=== PATIENT | female | born 1955 | race African-American/Black ===

== ENCOUNTER 2016-07-15 16:24 | Inpatient (IN) ==
[2016-07-15] MEDS ORDERED: TYLENOL PO PRN (18:27)
[2016-07-15] MEDS ORDERED: ZOFRAN IV PRN (18:27)
[2016-07-15] MEDS ORDERED: SOLU-MEDROL IV ONE (18:27)
[2016-07-15] MEDS: NS 1,000 ML IV SCH (20:09)
[2016-07-15] MEDS: ROCEPHIN 1 GM/NS 50 ML IV SCH (20:09)
[2016-07-15] MEDS: AMBIEN PO SCH (20:10)
[2016-07-15] MEDS: LOVENOX SUBQ SCH (20:10)
[2016-07-15] MEDS: DEPAKOTE PO SCH (20:10)
[2016-07-15] MEDS: DUONEB (A & A) INH SCH ×2 (20:15→22:33)
[2016-07-15] MEDS: ADVAIR 500/50 DISKUS INH SCH (20:15)
[2016-07-15] MEDS: HUMALOG MIX 75/25 SUBQ SCH (20:30)
[2016-07-15] MEDS: ZITHROMAX 500 MG/NS 250 ML IV SCH (20:31)
[2016-07-15] MEDS: HUMULIN R SUBQ SCH (20:37)
[2016-07-15] MEDS: XANAX PO SCH (20:38)
[2016-07-16] MEDS: SOLU-MEDROL IV SCH ×4 (02:55→20:02)
[2016-07-16] MEDS: DUONEB (A & A) INH SCH ×6 (03:52→23:06)
[2016-07-16 05:30] LABS: ALLEN TEST YES; BE -3.7 mmoll (-3.0-3.0); BLOOD TYPE ARTERIAL; DRAW SITE R RADIAL; METHB 0.5 % (0.0-1.5); O2(CT) 18.4 mL/dL (15.0-23.0); PCO2(98.6) 42 mmHg (35-45); PO2(98.6) 68 mmHg (60-100); SAMPLE BLOOD; SAO2 97.4 % (95.0-100.0); THB 14.2 g/dL (11.5-17.4); pH(98.6) 7.33 (7.35-7.45)
[2016-07-16 05:31] LABS: MODALITY ROOM AIR
[2016-07-16 07:16] LABS: MANUAL DIFF NEEDED? NO
[2016-07-16] MEDS: HUMULIN R SUBQ SCH ×4 (07:26→21:46)
[2016-07-16 07:28] LABS: BASO% 0.1 % (0.0-0.8); HEMOGLOBIN 13.8 g/dL (12.0-16.0); IMM GRAN# 0.03 X1000 (0.0-0.04); IMM GRAN% 0.3 % (0.0-0.5); LYMPH# 1.64 X1000 (1.2-3.4); LYMPH% 15.6 % (20.5-51.1); MCH 27.7 PG (27-31); MCHC 34.5 g/dL (33-37); MCV 80.3 FL (81-99); MONO# 0.05 X1000 (0.11-0.59); MONO% 0.5 % (1.7-9.3); MPV 10.3 FL (7.4-10.4); NEUT% 83.5 % (42.2-75.2); PLT 355 X1000 (130-400); RBC 4.98 XMIL (4.2-5.4)
[2016-07-16] MEDS: ADVAIR 500/50 DISKUS INH SCH ×2 (07:35→19:43)
[2016-07-16 07:50] LABS: AGAP 16; BUN 20 mg/dL (8-22); CALCIUM 9.3 mg/dL (8.8-10.2); CHLORIDE 97 mmol/L (98-107); COSMO 295; POTASSIUM 4.8 mmol/L (3.5-5.1); SODIUM 136 mmol/L (136-145); TCO2 23 mmol/L (25-35)
--- NOTE | 2016-07-16 07:58 | Diag Imaging Result Document ---
PROCEDURE NAME: CHEST-2 VIEWS - 07/15/2016 2 VIEWS OF THE CHEST: FINDINGS: The inspiration is better than on 04/24/2016. Otherwise, there has been no significant change in the appearance of the chest. IMPRESSION: Stable chest.
[2016-07-16] MEDS: XANAX PO SCH ×4 (08:02→21:46)
[2016-07-16] MEDS: ZOLOFT PO SCH (08:03)
[2016-07-16] MEDS: HYZAAR 50/12.5 MG PO SCH (08:03)
[2016-07-16] MEDS: DEPAKOTE PO SCH ×2 (08:03→21:46)
[2016-07-16] MEDS: HUMALOG MIX 75/25 SUBQ SCH ×2 (08:04→17:01)
--- NOTE | 2016-07-16 09:34 | PROGRESS NOTE ---
DATE: 07/16/2016 SUBJECTIVE: Ms. Vidal was admitted to [facility] with an acute chronic obstructive pulmonary disease exacerbation complicated by tracheobronchitis. Clinically, she is breathing more comfortably this morning. She continues with dyspnea, persistent nonproductive cough and pleuritic chest discomfort. Her initial chest x-ray demonstrated no infiltrates or interstitial edema. She is maintaining O2 saturations of 94% on 2 L of O2. Her blood pressure is well controlled. Systolic blood pressures are ranging from 126-134, whereas her diastolic blood pressures are ranging from 70-75. She has a history of type 2 insulin-dependent diabetes mellitus. Her blood sugars are fluctuating. She has polyuria and polydipsia. OBJECTIVE: Vital Signs: She is afebrile. Pulse 82, respirations 16, blood pressure 122/74. Cardiovascular: Regular rate and rhythm. Lungs: Diffuse end-expiratory wheezing with forced expiration. I do hear improved aeration of the lungs. Abdomen: Soft, nontender, with active bowel sounds. ASSESSMENT AND PLAN: 1. Acute chronic obstructive pulmonary disease exacerbation with tracheobronchitis. We will continue supplemental O2, DuoNeb nebulizer treatments, IV Solu-Medrol and broad-spectrum antibiotics including Rocephin and Zithromax. I will recheck a PA and lateral chest x-ray in the morning. 2. Hypertension. Her blood pressure is well controlled. We will continue losartan HCT 50/12.5 mg daily. 3. Type 2 insulin-dependent diabetes mellitus. Her blood sugars are fluctuating, which I suspect is a reflection of the intravenous steroids. I will increase the Humalog 75-25 to 20 units subcutaneously b.i.d. with meals and continue Humulin R sliding scale and patterned sugars.
[2016-07-16] MEDS: NS 1,000 ML IV SCH (11:21)
[2016-07-16] MEDS ORDERED: INSULIN PEN NEEDLES ONE (12:17)
[2016-07-16] MEDS: LOVENOX SUBQ SCH ×2 (17:00→17:34)
[2016-07-16] MEDS: ROCEPHIN 1 GM/NS 50 ML IV SCH ×2 (17:02→17:35)
[2016-07-16] MEDS: ZITHROMAX 500 MG/NS 250 ML IV SCH (20:02)
[2016-07-16] MEDS: AMBIEN PO SCH (21:46)
[2016-07-17] MEDS: SOLU-MEDROL IV SCH ×4 (01:15→18:04)
[2016-07-17] MEDS: DUONEB (A & A) INH SCH ×5 (04:33→23:09)
[2016-07-17] MEDS: HUMULIN R SUBQ SCH ×4 (06:28→20:49)
[2016-07-17] MEDS: NS 1,000 ML IV SCH ×2 (07:56→10:25)
[2016-07-17] MEDS: DEPAKOTE PO SCH ×2 (08:14→20:44)
[2016-07-17] MEDS: XANAX PO SCH ×4 (08:14→20:44)
[2016-07-17] MEDS: ZOLOFT PO SCH (08:14)
[2016-07-17] MEDS: HYZAAR 50/12.5 MG PO SCH (08:14)
[2016-07-17] MEDS: HUMALOG MIX 75/25 SUBQ SCH ×2 (08:15→16:45)
[2016-07-17] MEDS ORDERED: LASIX IV ONE (08:53)
--- NOTE | 2016-07-17 09:19 | PROGRESS NOTE ---
DATE: 07/17/2016 SUBJECTIVE: Ms. Viadl was admitted to [facility] with an acute chronic obstructive pulmonary disease exacerbation complicated by tracheobronchitis. Clinically, she continues to make slow, but steady progress. She is breathing more comfortably and has less shortness of breath when walking to the bathroom. She is maintaining O2 saturations of 97% to 98% on 2 L of O2. Her cough is now largely nonproductive and is beginning to taper off. Her blood pressure is well controlled. Blood pressure this morning was 120/69. Her blood sugars continue to fluctuate. OBJECTIVE: Vital Signs: Temperature 98.0 degrees, pulse 72, respirations 17, BP 120/69. CV: Regular rate and rhythm. Lungs: Improved aeration throughout all lung wheat. There are some scattered end expiratory wheezing with forced expiration. Abdomen: Soft, nontender, with active bowel sounds. ASSESSMENT AND PLAN: 1. Acute chronic obstructive pulmonary disease exacerbation. We will continue supplemental oxygen, taper down on the Solu-Medrol to 40 mg intravenous every 6 hours, and continue DuoNeb nebulizer treatments, as well as Rocephin and Zithromax. I will check posterior/anterior and lateral chest x-ray today. 2. Hypertension. Her blood pressure is stable. We will continue her current regimen of medications. 3. Type 2 insulin-dependent diabetes mellitus. Her blood sugars were fluctuating because of the intravenous Solu-Medrol. I will increase the Humalog 75/25 to 25 units subcutaneously twice daily, and continue pattern sugars and a Humulin R sliding scale.
--- NOTE | 2016-07-17 12:57 | Diag Imaging Result Document ---
PROCEDURE NAME: CHEST-2 VIEWS - 07/17/2016 PA AND LATERAL RADIOGRAPHS OF THE CHEST: COMPARISON: 07/15/2016. FINDINGS: The lungs are grossly clear. There is no discrete pleural fluid collection or evidence of pneumothorax. The cardiomediastinal silhouette and upper airway are grossly unremarkable. IMPRESSION: No evidence of acute chest pathology.
[2016-07-17] MEDS: ADVAIR 500/50 DISKUS INH SCH ×2 (14:06→20:00)
[2016-07-17] MEDS: ZITHROMAX 500 MG/NS 250 ML IV SCH (18:04)
[2016-07-17] MEDS: LOVENOX SUBQ SCH (18:04)
[2016-07-17] MEDS: ROCEPHIN 1 GM/NS 50 ML IV SCH (18:04)
[2016-07-17] MEDS: AMBIEN PO SCH (20:44)
[2016-07-18] MEDS: SOLU-MEDROL IV SCH ×3 (00:23→18:09)
[2016-07-18] MEDS: DUONEB (A & A) INH SCH ×5 (04:33→23:10)
[2016-07-18] MEDS: HUMULIN R SUBQ SCH ×4 (07:07→22:02)
[2016-07-18] MEDS: NS 1,000 ML IV SCH ×3 (07:11→18:09)
[2016-07-18] MEDS: ZOLOFT PO SCH (09:15)
[2016-07-18] MEDS: HYZAAR 50/12.5 MG PO SCH (09:15)
[2016-07-18] MEDS: DEPAKOTE PO SCH ×2 (09:15→21:00)
[2016-07-18] MEDS: HUMALOG MIX 75/25 SUBQ SCH ×2 (09:15→16:35)
[2016-07-18] MEDS: XANAX PO SCH ×3 (09:15→21:00)
[2016-07-18] MEDS: ADVAIR 500/50 DISKUS INH SCH ×2 (10:00→19:55)
--- NOTE | 2016-07-18 11:32 | PROGRESS NOTE ---
DATE: 07/18/2016 SUBJECTIVE: Ms. Vidal was admitted to [facility] with an acute chronic obstructive pulmonary disease exacerbation complicated by tracheobronchitis. Clinically, she continues to improve. Chest x-ray from 07/17/2016 demonstrated no pleural fluid, pneumothorax, or infiltrates. The lungs were grossly clear. Her lungs sound much more clear. She is maintaining O2 saturations of 98-99% on 2 L of O2. She has a minimal cough. Blood sugars continue to fluctuate. PHYSICAL EXAMINATION: Vital Signs: Temperature 98.1 degrees, pulse 82, respirations 20, BP 147/77. CV: Regular rate and rhythm. Lungs: Clear. Abdomen: Soft, nontender, with active bowel sounds. ASSESSMENT AND PLAN: 1. Acute chronic obstructive pulmonary disease exacerbation. I will check a room air oxygen saturation and stop the supplemental oxygen if her oxygen level is greater than 90. We will reduce the Solu-Medrol to 40 mg intravenous every 12 hours and continue DuoNeb nebulizer treatments. I will stop the intravenous antibiotics and begin Levaquin 750 mg daily. 2. Hypertension. Her blood pressure is stable. We will continue her current regimen of medications. 3. Type 2 insulin-dependent diabetes mellitus. Her blood sugars are still fluctuating. We will continue Humalog 75/25 with 25 units subcutaneous twice a day, pattern sugars and a Humulin R sliding scale. As we are tapering her steroids, I do not want to increase the Humalog at this time.
[2016-07-18] MEDS: LOVENOX SUBQ SCH (18:09)
[2016-07-18] MEDS: AMBIEN PO SCH (21:00)
[2016-07-19] MEDS: NS 1,000 ML IV SCH (01:46)
[2016-07-19] MEDS: SOLU-MEDROL IV SCH (06:33)
[2016-07-19] MEDS: HUMULIN R SUBQ SCH (06:34)
[2016-07-19 07:21] VITALS: BP 147/86
[2016-07-19] MEDS: DUONEB (A & A) INH SCH (07:25)
[2016-07-19] MEDS: ADVAIR 500/50 DISKUS INH SCH (07:25)
[2016-07-19] MEDS: HUMALOG MIX 75/25 SUBQ SCH (08:58)
[2016-07-19] MEDS: XANAX PO SCH (08:58)
[2016-07-19] MEDS: ZOLOFT PO SCH (08:58)
[2016-07-19] MEDS: DEPAKOTE PO SCH (08:59)
[2016-07-19] MEDS: HYZAAR 50/12.5 MG PO SCH (08:59)
[2016-07-19] MEDS ORDERED: LEVAQUIN PO SCH (09:00)
== END 2016-07-19 09:35 | disposition home or self-care (01) | DRG 192 ==
LOC: DIRADM 16:24 → 3N 16:25
PROVIDERS: ADMIT Internal Medicine; ATTEND Internal Medicine
DX: J44.1 Chronic obstructive pulmonary disease with (acute) exacerbation (principal); E11.42 Type 2 diabetes mellitus with diabetic polyneuropathy; Z99.81 Dependence on supplemental oxygen; I10 Essential (primary) hypertension; E78.5 Hyperlipidemia, unspecified; F17.210 Nicotine dependence, cigarettes, uncomplicated; Z79.899 Other long term (current) drug therapy; Z79.4 Long term (current) use of insulin; Z82.49 Family history of ischemic heart disease and other diseases of the circulatory system; Z83.3 Family history of diabetes mellitus
CPT/HCPCS: 71020; 80048; 82805; 82948; 85025; 87040; 94640; 94761; J0456; J0696; J1650; J1815; J1940; J2920; J2930; J7030

== ENCOUNTER 2016-10-05 16:21 | Inpatient (IN) ==
[2016-10-05] MEDS ORDERED: VALIUM ONE (16:41)
[2016-10-05] MEDS ORDERED: ZOFRAN IV PRN (17:24)
[2016-10-05] MEDS ORDERED: CEREBYX IV ONE (17:24)
[2016-10-05] MEDS ORDERED: NS IV ONE (17:24)
[2016-10-05] MEDS ORDERED: VALIUM IV PRN (17:24)
[2016-10-05 17:31] LABS: MANUAL DIFF NEEDED? NO
[2016-10-05 17:34] LABS: BASO% 0.4 % (0.0-0.8); EOS# 0.04 X1000 (0.0-0.7); EOS% 0.2 % (0.0-10.0); HEMATOCRIT 40.8 % (37.0-47.0); HEMOGLOBIN 13.3 g/dL (12.0-16.0); IMM GRAN# 0.17 X1000 (0.0-0.04); IMM GRAN% 0.9 % (0.0-0.5); LYMPH# 5.77 X1000 (1.2-3.4); LYMPH% 30.7 % (20.5-51.1); MCH 27.7 PG (27-31); MCHC 32.6 g/dL (33-37); MCV 84.8 FL (81-99); MONO# 0.65 X1000 (0.11-0.59); MONO% 3.5 % (1.7-9.3); MPV 10.3 FL (7.4-10.4); NEUT% 64.3 % (42.2-75.2); PLT 511 X1000 (130-400); RBC 4.81 XMIL (4.2-5.4)
[2016-10-05 17:41] LABS: INR 1.02; PROTIME 10.7 Seconds (9.2-11.7); PTT 28.5 Seconds (22.0-36.0)
[2016-10-05 17:49] LABS: MAGNESIUM 1.7 mg/dL (1.5-2.7)
[2016-10-05 17:58] LABS: FREE T4 0.84 ng/dL (0.93-1.70)
[2016-10-05 18:23] LABS: ALLEN TEST NO; BE -5.8 mmoll (-3.0-3.0); BLOOD TYPE ARTERIAL; DRAW SITE R BRACHIAL; METHB 1.7 % (0.0-1.5); O2(CT) 15.6 mL/dL (15.0-23.0); PCO2(98.6) 37 mmHg (35-45); SAMPLE BLOOD; SAO2 87.8 % (95.0-100.0); THB 13.2 g/dL (11.5-17.4); pH(98.6) 7.33 (7.35-7.45)
[2016-10-05 18:24] LABS: MODALITY ROOM AIR
[2016-10-05 18:25] LABS: PO2(98.6) 49 mmHg (60-100)
[2016-10-05] MEDS: DILANTIN IV SCH (18:34)
[2016-10-05] MEDS: NS 1,000 ML IV SCH (18:35)
[2016-10-05] MEDS: DUONEB (A & A) INH SCH ×2 (19:40→23:51)
[2016-10-05] MEDS: ZOSYN 4.5 GM/NS 100 ML IV SCH ×2 (20:08→23:42)
[2016-10-05 21:12] LABS: ALBUMIN 3.8 g/dL (3.5-5.0); CALCIUM 8.6 mg/dL (8.8-10.2); POTASSIUM 4.5 mmol/L (3.5-5.1); TOTAL BILIRUBIN 0.19 mg/dL (0.20-1.00); TOTAL PROTEIN 7.3 g/dL (6.3-8.3)
--- NOTE | 2016-10-05 21:21 | HISTORY AND PHYSICAL ---
HISTORY OF PRESENT ILLNESS: Mrs. Heidi Vidal is a 61-year-old lady who is well known to me. She has a history of COPD, type 2 insulin-dependent diabetes mellitus complicated by polyneuropathy, bipolar disorder. I had seen her in the office yesterday. She had new onset binocular diplopia. We obtained an MRI of the brain which was grossly normal. Her daughter called me stating that her mother was actively seizing. She apparently had a grand mal seizure. EMT personnel witnessed a 2nd seizure at the home and gave her Valium. Her blood sugar was 251. On arrival to the ER she had another witnessed grand mal seizure. As stated earlier, she does have a longstanding history of COPD. She was with complaint of increasing shortness of breath, increased work of breathing and a nonproductive cough. She was noted to have frothy gastric secretions around her mouth. She had a leukocytosis of 18,000. Her arterial blood gases were abnormal. We were concerned that she had aspirated. PAST MEDICAL HISTORY: As above. PAST SURGICAL HISTORY: Tubal ligation. ALLERGIES: Aspirin, Januvia Keflex. MEDICATIONS: Advair 500/50 one puff b.i.d., aspirin 81 mg daily, Depakote 250 mg daily, losartan/hydrochlorothiazide 100/25 one p.o. daily, ProAir 2 puffs q.6 hours p.r.n. shortness of breath, Xanax 0.5 mg 1 q.8 hours p.r.n., Zoloft 100 mg daily. FAMILY HISTORY: Her father had hypertension, coronary artery disease status post UT and at the age of 69. Her mother at the age of 61. She had complications from peritonitis. Her sister has diabetes and hypertension. SOCIAL HISTORY: She has quit. She does consume alcoholic beverages. She lives with her spouse. REVIEW OF SYSTEMS: She denies any recent weight gain or weight loss.HEENT: She wears glasses. CV: She was noted to be in atrial fibrillation with rapid ventricular rate. Pulmonary: See HPI. GI: See HPI. Endocrine: No polyuria, no polydipsia. Skin: No easy bruisability. : No leakage of urine with coughing or laughing. Skin: No easy bruisability. Neurologic: No migraines or seizures. Psychiatric: History of depression. PHYSICAL EXAMINATION: GENERAL: This is a acutely ill-appearing 61-year-old lady in mild distress secondary to dyspnea. VITAL SIGNS: Temperature 98.6 degrees, pulse 144 and irregular, respiratory rate 23, BP 133/85. HEENT: Fundi with arteriolar wall thickening. Pupils equal, round, reactive to light. Extraocular eye movements intact. TMs without bullae. NECK: Supple. No masses, JVD or bruits. CV: Irregularly irregular. LUNGS: Scattered rhonchi throughout all lung wheat with some end expiratory wheezing. ABDOMEN: Soft, nontender, with active bowel sounds. EXTREMITIES: Without edema. SKIN: No palpable purpura. NEURO: She is postictal. ASSESSMENT AND PLAN: 1. New onset seizure disorder. I am going to load her with Cerebyx 800 mg IV load then begin Dilantin 100 mg IV q.8 hours. 2. Acute respiratory failure secondary to aspiration pneumonitis. We will treat her with supplemental O2, DuoNeb nebulizer treatments and broad-spectrum antibiotics including Zosyn. 3. Type 2 insulin-dependent diabetes mellitus. While she is n.p.o. we will place her on pattern sugars and a Humulin R sliding scale. Once she is fully awake and eating we will resume her regular home dosage of Novolin 70/30. 4. Given the patient's clinical presentation and comorbid conditions, I believe that it is absolutely necessary to admit the patient to the hospital. Attempting to treat her as an outpatient could potentially have life-threatening consequences. I anticipate that she will be in the hospital for at least 2 midnights and I will therefore place her in inpatient status. We will begin Lovenox 40 mg subcutaneously daily as DVT prophylaxis.
[2016-10-05] MEDS: DEPAKOTE PO SCH (21:48)
[2016-10-06] MEDS: DILANTIN IV SCH ×3 (02:39→17:00)
[2016-10-06] MEDS: DUONEB (A & A) INH SCH ×5 (03:02→21:07)
[2016-10-06] MEDS ORDERED: PERCOCET-10 PO PRN (03:55)
[2016-10-06] MEDS: ZOSYN 4.5 GM/NS 100 ML IV SCH ×4 (05:20→17:28)
--- NOTE | 2016-10-06 05:40 | EKG Report ---
Test Performed on : 10/05/2016 5:33:08 PM Test Reason : ATRIAL FIB Blood Pressure : / mmHG Vent. Rate : 131 BPM Atrial Rate : 131 BPM P-R Int : 144 ms QRS Dur : 068 ms QT Int : 316 ms P-R-T Axes : 052 032 073 degrees QTc Int : 466 ms Sinus tachycardia. Cannot rule out Anterior infarct , age undetermined Abnormal ECG When compared with ECG of 22-APR-2016 07:20, Vent. rate has increased BY 68 BPM Unconfirmed Result
--- NOTE | 2016-10-06 07:45 | Diag Imaging Result Document ---
PROCEDURE NAME: CHEST-PORTABLE - 10/05/2016 AP PORTABLE CHEST AT 1750 HOURS: FINDINGS: Inspiration is suboptimal. Considering the degree of inspiration, there has been no significant change since 07/17/2016. IMPRESSION: Poor inspiration.
[2016-10-06] MEDS ORDERED: GLUCOPHAGE PO SCH (08:00)
--- NOTE | 2016-10-06 08:19 | PROGRESS NOTE ---
DATE: 10/06/2016 SUBJECTIVE: Ms. Vidal was admitted to [facility] with new onset generalized tonic clonic seizures. She had 2 witnessed seizures at home. She had a witnessed seizure in the ER. We loaded her with Cerebyx, and she is now taking Dilantin 100 mg IV every 8 hours. She has had no further seizure activity. An MRI of the brain was grossly normal. She is with complaint of a nonproductive cough, pleuritic chest pain that is worse with deep inspiration and paroxysms of cough, and mild dyspnea. She is maintaining O2 saturations of 99% to 100% on 4 liters of O2 per nasal cannula. She does have a history of type 2 insulin dependent diabetes mellitus. She ate very well last night. Her sugars are fluctuating and ranging in the 200s. She has polyuria and polydipsia. OBJECTIVE: Vital Signs: Temperature 98.1 degrees, pulse 70, respirations 16, blood pressure 131/64. Cardiovascular: Regular rate and rhythm. Lungs: Scattered rhonchi with occasional end- expiratory wheezing with forced expiration. Abdomen: Soft, nontender, with active bowel sounds. ASSESSMENT AND PLAN: 1. New onset generalized tonic clonic seizures. I cannot identify any readily identifiable cause for the seizures. We will continue Dilantin 100 mg IV every 8 hours. I will probably transition her to [facility] as an outpatient. We will consult Dr. Navarro for further evaluation. The patient understands that under State Law that she cannot drive for 6 months after a seizure, and she most remain seizure free during that period of time. 2. Acute chronic obstructive pulmonary disease exacerbation with aspiration pneumonitis. We will continue supplemental O2, DuoNeb nebulizer treatments, and broad-spectrum antibiotics including Zosyn. I will recheck a PA and lateral chest x-ray today. 3. Type 2 insulin dependent diabetes mellitus. We will continue an 1800 calorie ADA diet, pattern sugars, Humulin R sliding scale, and I will resume her regular dosage of NovoLog 70/30 at 25 units subcutaneously twice a day.
[2016-10-06] MEDS ORDERED: CYMBALTA PO SCH (09:00)
[2016-10-06] MEDS: NOVOLOG MIX 70/30 SUBQ SCH ×2 (09:14→16:56)
[2016-10-06] MEDS: HYZAAR 50/12.5 MG PO SCH (09:15)
[2016-10-06] MEDS: CARDIZEM 100 MG/NS 100 ML IV SCH (09:15)
[2016-10-06] MEDS: DEPAKOTE PO SCH ×2 (09:15→21:01)
--- NOTE | 2016-10-06 09:15 | Diag Imaging Result Document ---
PROCEDURE NAME: CHEST-PORTABLE - 10/06/2016 AP PORTABLE CHEST AT 0840 HOURS: FINDINGS: The inspiration is suboptimal. Compared to 10/05/2016, there is somewhat improved atelectasis or pneumonia in the right lower lobe. IMPRESSION: Poor inspiration.
[2016-10-06] MEDS: XANAX PO SCH ×3 (09:16→16:56)
[2016-10-06] MEDS: ZOLOFT PO SCH (09:16)
[2016-10-06] MEDS: ADVAIR 500/50 DISKUS INH SCH ×2 (09:37→19:15)
[2016-10-06] MEDS: NS 1,000 ML IV SCH (11:35)
[2016-10-06] MEDS: HUMULIN R SUBQ SCH ×3 (12:12→21:01)
[2016-10-06] MEDS ORDERED: CEREBYX IV ONE (13:32)
[2016-10-06] MEDS ORDERED: CEREBYX 500 MG in NS 50 ML IV ONE (14:00)
--- NOTE | 2016-10-06 14:28 | CONSULTATION ---
DATE OF CONSULTATION: 10/06/2016 HISTORY OF PRESENT ILLNESS: Ms. Vidal is 61 years old and she has had some recent neurologic change, including diplopia and seizure. She is not attentive now and not able to provide definite valid detailed history. Attentive family at the bedside and review of Dr. Ramirez' notes shows that she had complained of diplopia and she had some findings consistent with 6th nerve palsy a few days ago. Workup included brain MRI with and without contrast done yesterday, reported to show typical chronic changes, empty sella, nothing focal or acute, specifically no mention of any brainstem lesion. Later in the day yesterday, after the MRI, she began having israel seizure activity. Daughter at the bedside was 1st-hand witness. She reports patient had right arm flexed rigidly, left arm extended, shaking all over, unresponsive. She had at least 3 of these seizures witnessed. She never seemed completely back to normal baseline mentally. She sometimes visits with family and sometimes seems unable to maintain attention. Family reports no history of previous head injury, no concussion, no brain trauma, no previous stroke, no previous seizure. Her home medicines include alprazolam and family does not know how she takes that. She also has low-dose divalproex as a home medicine. We do not have urine drug screen this admission. Laboratories showed WBC 18,000 and glucose 318. She has been afebrile. Systolic blood pressures were initially 130s, later 90s , later mostly 150s- 170s. Hospital chart shows she had presented to the emergency room 10/03/2016 complaining of blurred vision for 6 days. The chart also indicates she had been seen at an emergency room in [place] the day before for similar complaints. Past history is reported to include bipolar disorder, COPD, and diabetes mellitus with peripheral neuropathy. EXAMINATION: On examination, Ms. Vidal is initially asleep, easily waked, but not easy to keep alert. She was sometimes attentive and sometimes not attentive. I witnessed at least 1 episode of right arm flexed at the elbow, eyes turned to the left, unresponsiveness for a few seconds. When she is alert, she answered simple questions appropriately. Interictally, speech is not dysarthric. Language function seems intact. I could not test her memory thoroughly. She has full lateral eye movement horizontally with head turning and with voluntary gaze left and right. She does not report diplopia now. Facial motility is symmetric. She has good power in the limbs. She did well on [id number] testing bilaterally. I did not test her gait. Neck is supple. IMPRESSIONS: 1. Recent diplopia. 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 Negative MRI is reassuring. I do not see any clinical evidence now of brainstem lesion. The clinical history does not sound like myasthenia or ocular myopathy. 2. Recent onset seizure. By report, she has not been completely recovered since onset. I wonder about subclinical seizures and I think I witnessed a likely brief partial seizure today. EEG is to be done soon. She has low-dose divalproex, which might help prevent seizure, but is probably not an adequate dose for full control. Reason for seizure is not certain. Alprazolam withdrawal would be a consideration. I do not see anything in the metabolic profile that likely would be associated with seizure or encephalopathy. In her age group with her risk factors, acute stroke is the most likely explanation for new onset seizure. We might need to consider repeat brain imaging. I discussed my findings and impression with family at the bedside. Further plans will depend on the EEG and on her clinical course. She has received fosphenytoin load and now phenytoin 100 mg IV q.8 hours. I am going to add another single fosphenytoin dose empirically. Thanks for asking me to see Ms. Vidal. [facility]
[2016-10-06] MEDS: DILAUDID IV PRN ×2 (14:51→21:10)
[2016-10-07] MEDS: ZOSYN 4.5 GM/NS 100 ML IV SCH ×5 (00:55→17:53)
[2016-10-07] MEDS: NS 1,000 ML IV SCH ×3 (00:56→20:01)
[2016-10-07] MEDS: DILANTIN IV SCH (01:03)
[2016-10-07] MEDS: DUONEB (A & A) INH SCH ×4 (02:36→20:00)
[2016-10-07] MEDS: DILAUDID IV PRN ×3 (05:42→19:56)
[2016-10-07] MEDS: HUMULIN R SUBQ SCH ×4 (06:36→21:02)
--- NOTE | 2016-10-07 07:55 | PROGRESS NOTE ---
DATE: 10/07/2016 SUBJECTIVE: Ms. Vidal has had no further grand mal seizures. Her family reported that she has had several episodes in which she simply stiffened up and was in a trancelike state. She seems much more alert this morning. She is awake and easily arousable. She answers questions appropriately. She is oriented to name and place. Her blood sugars are trending down and are ranging from 132-185. She denies any polyuria or polydipsia. She is breathing more comfortably. She has less cough and pleuritic chest pain. She is maintaining O2 saturations of 97-100% on 4 L of O2. OBJECTIVE: Temperature 98.7 degrees, pulse 80, respirations 16, BP 119/59. CV: Regular rate and rhythm. Lungs: Diminished breath sounds in the right base. Abdomen: Soft and nontender with active bowel sounds. Extremities: Without edema. ASSESSMENT AND PLAN: 1. New onset seizures. It sounds as if she is having both grand mal as well as petit mal seizures. Her Dilantin level was 7.4 yesterday. I will switch her to oral Dilantin 300 mg daily. Because of the petit mal seizure activity, I will increase the Depakote to 500 mg twice a day. 2. Acute chronic obstructive pulmonary disease exacerbation with aspiration pneumonia. We will continue supplemental oxygen, DuoNeb nebulizer treatments, and intravenous Zosyn. I will recheck a PA and lateral chest x-ray in the morning. 3. Type 2 insulin-dependent diabetes mellitus. We will continue an 1800 calorie, [employer] [employer] diet, pattern sugars, Humulin R sliding scale, and her regular dosage of NovoLog 70/30 with 25 units subcutaneously twice a day.
[2016-10-07] MEDS ORDERED: INSULIN PEN NEEDLES ONE (08:23)
[2016-10-07] MEDS: ADVAIR 500/50 DISKUS INH SCH ×2 (08:27→20:00)
[2016-10-07] MEDS: NOVOLOG MIX 70/30 SUBQ SCH ×2 (08:29→16:28)
[2016-10-07] MEDS: DEPAKOTE PO SCH ×2 (08:30→19:59)
[2016-10-07] MEDS: XANAX PO SCH ×3 (08:30→16:28)
[2016-10-07] MEDS: HYZAAR 50/12.5 MG PO SCH (08:30)
[2016-10-07] MEDS: ZOLOFT PO SCH (08:30)
[2016-10-07] MEDS ORDERED: CEREBYX IV ONE (08:53)
[2016-10-07] MEDS ORDERED: CEREBYX 500 MG in NS 50 ML IV ONE (09:00)
[2016-10-07] MEDS ORDERED: DILANTIN PO SCH (09:00)
--- NOTE | 2016-10-07 09:15 | PROGRESS NOTE ---
DATE: 10/07/2016 Ms. Vidal is awake, alert, attentive, appropriate, following simple commands consistently, visiting with family at the bedside appropriately. During the time that I was at the bedside, she had a typical focal seizure with head turned to the right, eyes tonic to the right, right arm flexed at the elbow and rigid, left arm limp and motionless. She was unresponsive during this time. This lasted about 45 seconds and resolved. Within several seconds, she was alert, conversing, reporting no sense that she had had an episode. Family reports these episodes have been occurring as often as several per hour. IMPRESSION: Focal seizures, apparent left hemisphere focus, much more alert interictally. We have electroencephalogram planned. Phenytoin level was subtherapeutic yesterday and I will give her additional load today. I am optimistic that seizure can be controlled. In light of the clear focal features, and her age and risk factors, this still seems most consistent with recent infarction as focus for stroke. We may need to repeat her MRI scan later. Thanks for allowing me to follow Ms. Vidal. [facility]
[2016-10-07] MEDS ORDERED: NS IV SCH ×4 (10:00)
[2016-10-07] MEDS ORDERED: DILANTIN IV SCH ×4 (10:00)
--- NOTE | 2016-10-07 15:00 | EEG REPORT ---
DATE: 10/07/2016 STUDY: EEG #[id number]. COMMENT: This is a digitally recorded EEG on a 61-year-old patient with clinically apparent seizures, likely left hemisphere focus. FINDINGS: This recording contains several electrographic seizures lasting from several seconds up to 90 seconds. Interictally, there is low amplitude slowing across the hemispheres and some poorly sustained 6 Hz posterior rhythm with uncertain reactivity to eye opening. The seizures were composed of mostly generalized spike and wave, sharp and slow wave discharges. INTERPRETATION: Abnormal EEG because of generalized seizure. CORRELATION: This correlates with her clinical seizures. Although the clinical features are clearly focal, the EEG findings are generalized. [facility]
[2016-10-07] MEDS: CARDIZEM 100 MG/NS 100 ML IV SCH (16:53)
[2016-10-08] MEDS: ZOSYN 4.5 GM/NS 100 ML IV SCH ×5 (00:40→23:42)
[2016-10-08] MEDS: DUONEB (A & A) INH SCH ×4 (04:10→20:17)
[2016-10-08] MEDS: HUMULIN R SUBQ SCH ×4 (06:27→22:47)
[2016-10-08] MEDS: DILANTIN PO SCH ×2 (08:31→08:33)
[2016-10-08] MEDS: ZOLOFT PO SCH (08:31)
[2016-10-08] MEDS: XANAX PO SCH ×3 (08:31→16:36)
[2016-10-08] MEDS: NOVOLOG MIX 70/30 SUBQ SCH ×2 (08:32→16:37)
--- NOTE | 2016-10-08 08:32 | PROGRESS NOTE ---
DATE: 10/08/2016 SUBJECTIVE: Ms. Vidal was noted to have another petit mal seizure last night. Her EEG demonstrated several electrographic seizures lasting from several seconds up to 38 seconds. The seizures were composed of mostly generalized spike and slow-wave discharges. During her initial seizure she aspirated. She is continuing with a persistent cough productive of yellowish sputum and pleuritic chest pain, worse with deep inspiration and paroxysms of cough. She is maintaining O2 saturations of 100% on 3 L of O2. She has had several episodes of symptomatic hypoglycemia. Her family reports that she is not eating very much. OBJECTIVE: Vital signs: Temperature 98.9 degrees, pulse 80, respirations 16, BP 140/66. CV: Regular rate and rhythm. Lungs: Crackles in the right base. Abdomen: Soft, nontender, with active bowel sounds. ASSESSMENT AND PLAN: 1. Acute chronic obstructive pulmonary disease exacerbation with aspiration pneumonia. We will continue supplemental oxygen, DuoNeb nebulizer treatments, and intravenous Zosyn. I will check a portable chest x-ray today. 2. Petit mal seizures. She continues to have more absence-type seizures. I have spoken to Dr. Navarro. We will increase the Depakote to 100 mg twice daily and increase the Dilantin to 400 mg daily. I will recheck Depakote and Dilantin levels in the morning. 3. Type 2 insulin-dependent diabetes mellitus. Given the episodes of hypoglycemia, I am going to reduce the dosage of the NovoLog 70/30 to 15 units subcutaneous twice daily with meals, and will continue pattern sugars and a Humulin-R sliding scale.
[2016-10-08] MEDS: NS 1,000 ML IV SCH (08:34)
--- NOTE | 2016-10-08 09:21 | Diag Imaging Result Document ---
PROCEDURE NAME: CHEST-PORTABLE - 10/08/2016 AP PORTABLE CHEST AT 0805: FINDINGS: There is atelectasis in both lung bases which was not present on 10/06/2016. Otherwise, there has been no significant change. IMPRESSION: Bibasilar atelectasis.
[2016-10-08] MEDS: HYZAAR 50/12.5 MG PO SCH (09:37)
[2016-10-08] MEDS: DILAUDID IV PRN ×3 (09:37→21:26)
[2016-10-08] MEDS: DEPAKOTE PO SCH ×2 (10:00→20:17)
--- NOTE | 2016-10-08 10:08 | PROGRESS NOTE ---
DATE: 10/08/2016 SUBJECTIVE: Ms. Vidal is awake, alert, attentive. She seems even brighter today than yesterday. She has had some likely partial seizures in the last 12 hours, but the family has not noticed anything definite in the last few hours. This is significantly improved compared to yesterday. We discussed focal versus generalized seizures. We discussed possible explantations including statistically most likely acute ischemic infarction in her age group with her risk factors. I made it clear to family that these are not definite diagnoses. We have increased her divalproex and phenytoin doses and will be optimistic seizure control will be established. We may need to consider repeat brain imaging to look for possible left hemisphere infarction that may have occurred after the recent MRI. No urgent suggestion from a neurologic standpoint today. Thanks for allowing me to follow Ms. Vidal. [facility]
[2016-10-08] MEDS: ADVAIR 500/50 DISKUS INH SCH ×2 (11:11→20:17)
[2016-10-08] MEDS: CARDIZEM 100 MG/NS 100 ML IV SCH (12:56)
--- NOTE | 2016-10-08 14:42 | Diag Imaging Result Document ---
PROCEDURE NAME: MRI BRAIN W/O CONTRAST - 10/08/2016 MRI OF THE BRAIN: FINDINGS: The current study is compared with that of 10/05/2016. There is no evidence of restricted diffusion. There is some patient motion on the T2-weighted images. There are some punctate and patchy areas of increased T2-weighted signal intensity in the white matter of the centrum semiovale on the right and around the atrium of the left lateral ventricle. There is also some increased T2-weighted signal intensity in subcortical white matter just above the left sylvian fissure. There is no evidence of bleed or abnormal extra-axial fluid collection. IMPRESSION: 1. Stable MRI of the brain. 2. Chronic microvascular changes.
[2016-10-09] MEDS: NS 1,000 ML IV SCH ×3 (01:55→20:00)
[2016-10-09] MEDS: DUONEB (A & A) INH SCH ×4 (03:35→21:39)
[2016-10-09] MEDS: DILAUDID IV PRN ×3 (04:15→17:00)
[2016-10-09] MEDS: ZOSYN 4.5 GM/NS 100 ML IV SCH ×3 (05:30→17:00)
[2016-10-09] MEDS: HUMULIN R SUBQ SCH ×4 (06:00→19:45)
[2016-10-09] MEDS: NOVOLOG MIX 70/30 SUBQ SCH ×2 (08:20→16:30)
[2016-10-09] MEDS: ZOLOFT PO SCH (08:20)
[2016-10-09] MEDS: XANAX PO SCH ×3 (08:20→17:00)
[2016-10-09] MEDS: HYZAAR 50/12.5 MG PO SCH (08:20)
[2016-10-09] MEDS: DILANTIN PO SCH (08:20)
[2016-10-09] MEDS: DEPAKOTE PO SCH ×2 (08:20→19:45)
[2016-10-09] MEDS: ADVAIR 500/50 DISKUS INH SCH ×2 (11:25→21:40)
[2016-10-09] MEDS: CARDIZEM 100 MG/NS 100 ML IV SCH (17:17)
[2016-10-10] MEDS: DILAUDID IV PRN ×2 (00:11→06:10)
[2016-10-10] MEDS: ZOSYN 4.5 GM/NS 100 ML IV SCH ×5 (00:12→23:27)
[2016-10-10] MEDS: CARDIZEM 100 MG/NS 100 ML IV SCH (05:01)
[2016-10-10] MEDS: DUONEB (A & A) INH SCH ×3 (06:01→15:54)
[2016-10-10] MEDS: HUMULIN R SUBQ SCH ×4 (06:22→20:59)
[2016-10-10] MEDS: NOVOLOG MIX 70/30 SUBQ SCH ×2 (08:41→16:55)
[2016-10-10] MEDS: DILANTIN PO SCH (08:41)
[2016-10-10] MEDS: ZOLOFT PO SCH (08:41)
[2016-10-10] MEDS: XANAX PO SCH ×3 (08:42→17:55)
[2016-10-10] MEDS: HYZAAR 50/12.5 MG PO SCH (08:42)
[2016-10-10] MEDS: DEPAKOTE PO SCH ×2 (08:42→20:58)
[2016-10-10] MEDS ORDERED: PERCOCET-10 PO PRN (10:31)
[2016-10-10] MEDS: ADVAIR 500/50 DISKUS INH SCH ×2 (11:33→19:15)
--- NOTE | 2016-10-10 12:13 | PROGRESS NOTE ---
DATE: 10/10/2016 SUBJECTIVE: Mrs. Vidal has a history of type 2 insulin-dependent diabetes mellitus. She had been having frequent episodes of hypoglycemia and we reduced the dosage of insulin to 15 units subcutaneously b.i.d. Her sugars are now trending upward. Sugars are ranging from 149-191. She has had no further seizure activity. She is breathing comfortably and is maintaining O2 saturations of 96 to 98% on room air. We had been treating her for an underlying aspiration pneumonia with Zosyn. She continues with a minimal cough but denies any pleuritic chest pain. OBJECTIVE: Vital signs: Temperature 98.8 degrees, pulse 80, respirations 16, BP 160/71. CV: Regular rate and rhythm. Lungs: Clear. Abdomen: Soft, nontender, with active bowel sounds. ASSESSMENT AND PLAN: 1. Acute chronic obstructive pulmonary disease exacerbation with aspiration pneumonia. Clinically she has continued to improve. We will continue DuoNeb nebulizer treatments as well as Zosyn. I will recheck a PA and lateral chest x-ray in the morning. 2. Seizure disorder. She has had both grand mal and fuller mal seizures. We will continue both Depakote and Dilantin. 3. Type 2 insulin-dependent diabetes mellitus. Her blood sugars are trending upward. I will increase the NovoLog 70/30 to 20 units subcutaneously b.i.d. cc: Antonio Ramirez MD
--- NOTE | 2016-10-10 13:01 | Diag Imaging Result Document ---
PROCEDURE NAME: CHEST-PORTABLE - 10/10/2016 PORTABLE CHEST: FINDINGS: Compared to 10/08/2016. Heart size is within normal limits. The lungs appear clear. There is no pleural effusion or pneumothorax identified. IMPRESSION: No evidence of acute disease.
[2016-10-10] MEDS: NS 1,000 ML IV SCH (15:30)
[2016-10-11] MEDS: CARDIZEM 100 MG/NS 100 ML IV SCH ×2 (02:54→22:20)
[2016-10-11] MEDS: NS 1,000 ML IV SCH ×2 (03:19→17:02)
[2016-10-11] MEDS: DUONEB (A & A) INH SCH ×3 (03:50→16:00)
[2016-10-11] MEDS: ZOSYN 4.5 GM/NS 100 ML IV SCH (05:46)
[2016-10-11] MEDS: HUMULIN R SUBQ SCH ×4 (06:14→22:19)
[2016-10-11] MEDS: ADVAIR 500/50 DISKUS INH SCH ×2 (08:00→19:20)
[2016-10-11] MEDS: HYZAAR 50/12.5 MG PO SCH (08:23)
[2016-10-11] MEDS: DEPAKOTE PO SCH ×2 (08:23→22:19)
[2016-10-11] MEDS: DILANTIN PO SCH (08:23)
[2016-10-11] MEDS: ZOLOFT PO SCH (08:24)
[2016-10-11] MEDS: XANAX PO SCH ×3 (08:24→17:02)
[2016-10-11] MEDS: NOVOLOG MIX 70/30 SUBQ SCH ×2 (08:34→17:02)
--- NOTE | 2016-10-11 09:06 | PROGRESS NOTE ---
DATE: 10/11/2016 SUBJECTIVE: Ms. Vidal was admitted to [facility] with new onset tonic-clonic seizures. She subsequently had multiple petit mal seizures. She is currently on Dilantin 400 mg daily and Depakote 1000 mg b.i.d. She remains seizure free. Her family reports that she seems more drowsy this morning. Her blood pressure is well controlled. She denies any chest pain, palpitations, or anginal equivalents. She was breathing comfortably. She denies any unexplained cough, pleuritic chest pain, fever, chills, nausea, or vomiting. Her repeat chest x-ray was clear. The aspiration pneumonia has resolved. OBJECTIVE: Vital Signs: Temperature 98.6 degrees, pulse 98, respirations 17. CV: Regular rate and rhythm. Lungs: Clear. Abdomen: Soft, nontender, with active bowel sounds. ASSESSMENT AND PLAN: 1. New onset seizure disorder. She has had both tonic-colonic as well as petit mal seizures. I will check Dilantin and Depakote levels, and adjust the dosages of those medicines as indicated. 2. Acute chronic obstructive pulmonary disease exacerbation with aspiration pneumonia. We have weaned her off oxygen and she is maintaining oxygen saturations of 98-100% on room air. We will continue DuoNeb nebulizer treatments but because of the tachycardia, we will reduce the dosage of DuoNeb to 4 times daily. I will stop the intravenous Zosyn. 3. Type 2 insulin-dependent diabetes mellitus. Her blood sugars are generally well controlled. We will continue an 1800 calorie, [employer] diet, pattern sugars, Humulin R sliding scale, and NovoLog 02/06 with 20 units subcutaneous twice a day. cc: Antonio Ramirez MD
--- NOTE | 2016-10-11 09:30 | PROGRESS NOTE ---
DATE: 10/11/2016 Ms. Vidal has not had a clinical seizure episode recognized by family in over 48 hours. She is a little bit unsteady with gait but has been able to walk to the nurses station and back. Her levels 10/09/2016 were phenytoin 9.1, valproic acid 73.4 on 1000 mg b.i.d. and 400 mg daily respectively. I do not think we need to make any urgent changes. We may be able to reduce the dose on one or both of her seizure medicines later but I would continue them at current levels for now. If she continues unsteady, we can recheck levels, particularly with concern for phenytoin level and gait unsteadiness. No urgent suggestions. Thanks for allowing me to follow Ms. Vidal. cc: MD Antonio Barrett III, MD
[2016-10-12] MEDS: DUONEB (A & A) INH SCH ×2 (02:41→08:12)
[2016-10-12] MEDS: NS 1,000 ML IV SCH (06:01)
[2016-10-12] MEDS: HUMULIN R SUBQ SCH (06:29)
[2016-10-12] MEDS ORDERED: INSULIN PEN NEEDLES ONE (07:37)
[2016-10-12] MEDS: ADVAIR 500/50 DISKUS INH SCH (08:12)
[2016-10-12] MEDS: NOVOLOG MIX 70/30 SUBQ SCH (08:20)
[2016-10-12 08:21] VITALS: BP 150/92
[2016-10-12] MEDS: DEPAKOTE PO SCH (08:21)
[2016-10-12] MEDS: DILANTIN PO SCH (08:21)
[2016-10-12] MEDS: XANAX PO SCH (08:21)
[2016-10-12] MEDS: ZOLOFT PO SCH (08:21)
[2016-10-12] MEDS: HYZAAR 50/12.5 MG PO SCH (08:21)
--- NOTE | 2016-10-12 13:47 | DISCHARGE SUMMARY ---
ADMISSION DATE: 10/05/2016 DISCHARGE DATE: 10/12/2016 ADMISSION DIAGNOSIS: 1. Acute chronic obstructive pulmonary disease exacerbation complicated by aspiration pneumonia. 2. New onset grand mal seizures. 3. New onset petit mal seizures. 4. Essential hypertension. 5. Type 2 insulin-dependent diabetes mellitus. 6. Bipolar disorder. DISCHARGE INSTRUCTIONS: 1. The patient is to return to clinic in 1 week to see me, Dr. Gallo Ramirez. 2. Activity as tolerated. 3. 1800 calorie ADA diet. MEDICATIONS: 1. Xanax 0.5 mg q.8 hours p.r.n. 2. Depakote a 1000 mg b.i.d. 3. Losartan HCT 100/25 1 p.o. daily. 4. NovoLog 70/30 25 units subcutaneously b.i.d. 5. Dilantin 400 mg daily. 6. Advair 500/50 one puff b.i.d. 7. Zoloft 100 mg daily. PHYSICAL EXAMINATION: General: This is a well-developed, well-nourished, 61- year-old, lady in no apparent distress. Vital Signs: She is afebrile. Vital signs are stable. CV: Regular rate and rhythm. Lungs: Clear. Abdomen: Is soft, nontender, with active bowel sounds. HOSPITAL COURSE: Ms. Heidi Vidal was admitted to [facility] with new onset grand mal seizures. She had several witnessed seizures in the ER. We initially loaded her with IV Cerebyx and began intravenous Dilantin. An MRI obtained on the morning of admission was grossly normal. She did not have any obvious electrolyte abnormalities. She was not taking any medicines that could cause seizures. She had no further grand mal seizures. She did have several new onset of petit mal seizures and we gradually increased the dosage of Depakote to a 1000 mg b.i.d. She has had no seizure activity in at least [address] Navarro was consulted to see the patient and performed an EEG which was consistent with a seizure disorder. During one of the seizures she aspirated. Chest x-ray demonstrated a right lower lobe infiltrate. The patient was treated with her regular COPD type medications, nebulizer treatments, and IV Zosyn. She responded well to the therapy. Repeat chest x-rays showed resolution of the pneumonia prior to discharge. We were gradually able to wean her off of oxygen and she was tolerating. She was maintaining O2 saturations of 95-98% on room air. She will continue Advair 500/50 one puff b.i.d., and use a Proventil HFA inhaler 2 puffs q.6 hours p.r.n. shortness of breath. She does have a longstanding history of type 2 insulin-dependent diabetes mellitus. While she was NPO, we placed her on pattern sugars and a Humulin R sliding scale. We adjusted her insulin while she was hospitalized. We reviewed an 1800 calorie ADA diet with her and she will continue NovoLog 70/30 25 units subcutaneously b.i.d. Having reached maximum hospital benefit, the patient was discharged in stable condition. cc: Antonio Ramirez MD MTDD
== END 2016-10-12 12:00 | disposition home health service (06) ==
LOC: EDBD → ED 16:21 → 3S 17:38
PROVIDERS: ADMIT Internal Medicine; ATTEND Internal Medicine

== ENCOUNTER 2017-04-03 09:55 | Inpatient (IN) ==
[2017-04-03] MEDS ORDERED: DUONEB (A & A) INH ONE ×2 (10:20→13:22)
[2017-04-03] MEDS ORDERED: DECADRON IV ONE (10:20)
--- NOTE | 2017-04-03 10:48 | Diag Imaging Result Doc PS360 ---
EXAM: CHEST-2 VIEWS HISTORY: CP TECHNIQUE: Sitting AP and lateral, two views COMPARISON: 03/21/2017 FINDINGS: The lungs are well expanded. The heart is not enlarged. The vessels are not distended. There are no infiltrates. No pleural effusions. IMPRESSION: No acute abnormality. Electronically signed by Moshe Oakley 04/03/2017 10:46 AM
[2017-04-03 11:06] LABS: MANUAL DIFF NEEDED? NO
[2017-04-03 11:09] LABS: BASO% 0.3 % (0.0-0.8); EOS# 0.82 X1000 (0.0-0.7); EOS% 6.9 % (0.0-10.0); HEMATOCRIT 44.2 % (37.0-47.0); HEMOGLOBIN 15.5 g/dL (12.0-16.0); IMM GRAN# 0.04 X1000 (0.0-0.04); IMM GRAN% 0.3 % (0.0-0.5); LYMPH# 4.28 X1000 (1.2-3.4); LYMPH% 35.9 % (20.5-51.1); MCH 29.2 PG (27-31); MCHC 35.1 g/dL (33-37); MCV 83.2 FL (81-99); MONO# 0.64 X1000 (0.11-0.59); MONO% 5.4 % (1.7-9.3); MPV 10.4 FL (7.4-10.4); NEUT% 51.2 % (42.2-75.2); PLT 362 X1000 (130-400); RBC 5.31 XMIL (4.2-5.4)
[2017-04-03 11:20] LABS: INR 0.98; PROTIME 10.3 Seconds (9.2-11.7); PTT 26.9 Seconds (22.0-36.0)
[2017-04-03 11:59] LABS: AGAP 15; ALBUMIN 4.1 g/dL (3.5-5.0); ALKALINE PHOSPHATASE 101 U/L (32-104); BUN 16 mg/dL (8-22); CALCIUM 9.7 mg/dL (8.8-10.2); CHLORIDE 100 mmol/L (98-107); COSMO 285; GOT 24 U/L (10-30); GPT 19 U/L (10-36); MAGNESIUM 1.9 mg/dL (1.5-2.7); SODIUM 140 mmol/L (136-145); TCO2 25 mmol/L (25-35); TOTAL BILIRUBIN 0.19 mg/dL (0.20-1.00); TOTAL PROTEIN 7.1 g/dL (6.3-8.3)
[2017-04-03 12:08] LABS: CK PROFILE 206 U/L (24-173)
[2017-04-03 12:41] LABS: CK INDEX 1.4 (0.0-2.5); CK-MB 2.88 ng/mL (0.0-5.0)
[2017-04-03 12:57] LABS: ALLEN TEST NO; BE 4.1 mmoll (-3.0-3.0); BLOOD TYPE ARTERIAL; DRAW SITE R BRACHIAL; METHB 1.4 % (0.0-1.5); O2(CT) 21.2 mL/dL (15.0-23.0); PCO2(98.6) 41 mmHg (35-45); PO2(98.6) 126 mmHg (60-100); SAMPLE BLOOD; SAO2 99.2 % (95.0-100.0); THB 15.6 g/dL (11.5-17.4); pH(98.6) 7.45 (7.35-7.45)
[2017-04-03 12:58] LABS: MODALITY CANNULA
[2017-04-03] MEDS ORDERED: PULMICORT INH ONE (13:22)
[2017-04-03] MEDS ORDERED: TYLENOL PO ONE (14:32)
[2017-04-03] MEDS ORDERED: TYLENOL ONE (14:35)
[2017-04-03] MEDS ORDERED: HUMALOG SUBQ ONE (15:05)
[2017-04-03] MEDS ORDERED: TIOTROPIUM BROMIDE 4 GM IH SCH (15:05)
[2017-04-03] MEDS ORDERED: LEVAQUIN 500 MG in NS 100 ML IV SCH (16:00)
[2017-04-03] MEDS: DUONEB (A & A) INH SCH ×2 (16:03→18:50)
[2017-04-03] MEDS: LOVENOX SUBQ SCH (17:37)
[2017-04-03] MEDS: AMBIEN PO PRN (20:40)
[2017-04-03] MEDS: DEPAKOTE PO SCH (20:40)
[2017-04-03] MEDS: XANAX PO SCH (20:40)
[2017-04-03] MEDS: SOLU-MEDROL IV SCH (20:40)
[2017-04-03] MEDS ORDERED: NS 1,000 ML ONE (21:20)
[2017-04-03] MEDS: HUMALOG SUBQ SCH (22:24)
[2017-04-04] MEDS: DUONEB (A & A) INH SCH ×7 (00:05→22:33)
[2017-04-04 05:42] LABS: MANUAL DIFF NEEDED? NO
[2017-04-04 05:49] LABS: BASO% 0.2 % (0.0-0.8); EOS# 0.04 X1000 (0.0-0.7); EOS% 0.3 % (0.0-10.0); HEMATOCRIT 40.7 % (37.0-47.0); HEMOGLOBIN 14.2 g/dL (12.0-16.0); IMM GRAN# 0.05 X1000 (0.0-0.04); IMM GRAN% 0.4 % (0.0-0.5); LYMPH# 4.33 X1000 (1.2-3.4); LYMPH% 30.4 % (20.5-51.1); MCH 29.3 PG (27-31); MCHC 34.9 g/dL (33-37); MCV 83.9 FL (81-99); MONO% 4.2 % (1.7-9.3); NEUT% 64.5 % (42.2-75.2); PLT 344 X1000 (130-400); RBC 4.85 XMIL (4.2-5.4)
[2017-04-04] MEDS: SOLU-MEDROL IV SCH ×3 (06:00→21:34)
[2017-04-04] MEDS: HUMALOG SUBQ SCH ×4 (06:10→21:35)
[2017-04-04 06:28] LABS: AGAP 15; ALBUMIN 3.6 g/dL (3.5-5.0); ALKALINE PHOSPHATASE 85 U/L (32-104); BUN 19 mg/dL (8-22); CALCIUM 9.3 mg/dL (8.8-10.2); CHLORIDE 99 mmol/L (98-107); COSMO 286; GOT 16 U/L (10-30); GPT 17 U/L (10-36); POTASSIUM 4.3 mmol/L (3.5-5.1); SODIUM 140 mmol/L (136-145); TCO2 26 mmol/L (25-35); TOTAL BILIRUBIN 0.15 mg/dL (0.20-1.00); TOTAL PROTEIN 6.7 g/dL (6.3-8.3)
--- NOTE | 2017-04-04 07:28 | EKG Report ---
Test Performed on : 04/03/2017 10:17:42 AM Test Reason : reordered Blood Pressure : / mmHG Vent. Rate : 080 BPM Atrial Rate : 080 BPM P-R Int : 152 ms QRS Dur : 072 ms QT Int : 414 ms P-R-T Axes : 061 015 097 degrees QTc Int : 477 ms Normal sinus rhythm. Abnormal QRS-T angle, consider primary T wave abnormality Abnormal ECG When compared with ECG of 05-OCT-2016 17:33, Vent. rate has decreased BY 51 BPM Unconfirmed Result
[2017-04-04] MEDS: DILANTIN PO SCH (09:13)
[2017-04-04] MEDS: XANAX PO SCH ×3 (09:14→21:35)
[2017-04-04] MEDS: CYMBALTA PO SCH (09:14)
[2017-04-04] MEDS: HYZAAR 50/12.5 MG PO SCH (09:14)
[2017-04-04] MEDS: ZOLOFT PO SCH (09:14)
[2017-04-04] MEDS: DEPAKOTE PO SCH ×2 (09:14→21:35)
[2017-04-04] MEDS: ZANTAC PO SCH ×2 (09:22→21:35)
[2017-04-04] MEDS: SPIRIVA INH SCH (09:55)
[2017-04-04] MEDS: SYMBICORT 160/4.5 MICROGM INHALER INH SCH ×2 (09:55→19:31)
[2017-04-04] MEDS: ZITHROMAX 500 MG/NS 500 MG/250 ML IVPB IV SCH (10:48)
[2017-04-04] MEDS: ROCEPHIN 1 GM in NS 50 ML IV SCH ×2 (11:59→12:24)
[2017-04-04] MEDS: LOVENOX SUBQ SCH (15:11)
[2017-04-04] MEDS: AMBIEN PO PRN (21:37)
[2017-04-05] MEDS: SOLU-MEDROL IV SCH ×4 (03:13→21:13)
[2017-04-05] MEDS: DUONEB (A & A) INH SCH ×6 (03:31→22:50)
[2017-04-05] MEDS: HUMALOG SUBQ SCH ×4 (06:16→21:13)
[2017-04-05] MEDS: SPIRIVA INH SCH (07:28)
[2017-04-05] MEDS: SYMBICORT 160/4.5 MICROGM INHALER INH SCH ×2 (07:28→18:50)
--- NOTE | 2017-04-05 09:11 | Diag Imaging Result Doc PS360 ---
EXAM: CT THORAX W/O CONTRAST - 04/05/2017 HISTORY: weight loss, dyspnea TECHNIQUE: Without contrast per request the referring provider. Low dose protocol. COMPARISON: None. FINDINGS: There are emphysematous changes with multiple small bulla, primarily in the bilateral upper lobes. There is apparent ill-defined pulmonary scarring at the bilateral upper lobes. There is apparent mild pleural and pulmonary scarring at the lateral right lower lobe. There is a 1.2 cm calcified granuloma at the inferior left lower lobe and there are calcified left hilar and mediastinal lymph nodes from old granulosis disease. There is no acute-appearing consolidation, pleural effusion, or pneumothorax identified. There is no noncalcified pulmonary mass lesion identified. There is a couple nonspecific borderline mediastinal lymph nodes. There are atherosclerotic calcifications noted, including apparent coronary artery calcifications. There is apparent partially calcified mitral valve annulus. There is a 1.6 cm low-density lesion in the left thyroid lobe. IMPRESSION: Emphysematous changes and scarring. Old granulomatous disease. No definite evidence of acute pulmonary disease. A couple of nonspecific borderline mediastinal lymph nodes. 1.6 cm low-density lesion in left thyroid lobe. Electronically signed by James Li 04/05/2017 9:08 AM
[2017-04-05] MEDS: CYMBALTA PO SCH (09:27)
[2017-04-05] MEDS: DILANTIN PO SCH (09:28)
[2017-04-05] MEDS: ZANTAC PO SCH ×2 (09:28→21:13)
[2017-04-05] MEDS: ZOLOFT PO SCH (09:28)
[2017-04-05] MEDS: DEPAKOTE PO SCH ×2 (09:28→21:13)
[2017-04-05] MEDS: XANAX PO SCH ×3 (09:28→21:13)
[2017-04-05] MEDS: HYZAAR 50/12.5 MG PO SCH (09:28)
[2017-04-05] MEDS: ZITHROMAX 500 MG/NS 500 MG/250 ML IVPB IV SCH (09:43)
[2017-04-05] MEDS: ROCEPHIN 1 GM in NS 50 ML IV SCH (12:20)
[2017-04-05] MEDS: LOVENOX SUBQ SCH (16:07)
[2017-04-05] MEDS: AMBIEN PO PRN (21:15)
[2017-04-06] MEDS: DUONEB (A & A) INH SCH ×6 (03:00→23:20)
[2017-04-06] MEDS: SOLU-MEDROL IV SCH ×3 (04:43→20:22)
[2017-04-06] MEDS: HUMALOG SUBQ SCH ×6 (06:29→21:33)
[2017-04-06] MEDS: SPIRIVA INH SCH (07:27)
[2017-04-06] MEDS: SYMBICORT 160/4.5 MICROGM INHALER INH SCH ×2 (07:27→19:05)
[2017-04-06] MEDS: ZITHROMAX 500 MG/NS 500 MG/250 ML IVPB IV SCH (09:03)
[2017-04-06] MEDS: ZOLOFT PO SCH (09:04)
[2017-04-06] MEDS: ZANTAC PO SCH ×2 (09:04→20:22)
[2017-04-06] MEDS: XANAX PO SCH ×3 (09:04→20:24)
[2017-04-06] MEDS: HYZAAR 50/12.5 MG PO SCH (09:04)
[2017-04-06] MEDS: DILANTIN PO SCH (09:04)
[2017-04-06] MEDS: CYMBALTA PO SCH (09:04)
[2017-04-06] MEDS: DEPAKOTE PO SCH ×2 (09:05→20:22)
[2017-04-06] MEDS: ROCEPHIN 1 GM in NS 50 ML IV SCH (10:41)
[2017-04-06] MEDS: LOVENOX SUBQ SCH (14:26)
[2017-04-06] MEDS: AMBIEN PO PRN (20:26)
[2017-04-07] MEDS: DUONEB (A & A) INH SCH ×6 (03:05→23:05)
[2017-04-07] MEDS: SOLU-MEDROL IV SCH ×3 (05:52→21:14)
[2017-04-07] MEDS: HUMALOG SUBQ SCH ×3 (06:25→16:52)
[2017-04-07] MEDS: SPIRIVA INH SCH (07:44)
[2017-04-07] MEDS: SYMBICORT 160/4.5 MICROGM INHALER INH SCH ×2 (07:45→19:00)
[2017-04-07] MEDS: ZANTAC PO SCH ×2 (08:49→21:13)
[2017-04-07] MEDS: HYZAAR 50/12.5 MG PO SCH (08:49)
[2017-04-07] MEDS: DILANTIN PO SCH (08:49)
[2017-04-07] MEDS: DEPAKOTE PO SCH ×2 (08:49→21:13)
[2017-04-07] MEDS: CYMBALTA PO SCH (08:49)
[2017-04-07] MEDS: XANAX PO SCH ×3 (08:50→21:13)
[2017-04-07] MEDS: ZOLOFT PO SCH (08:50)
[2017-04-07] MEDS: ZITHROMAX 500 MG/NS 500 MG/250 ML IVPB IV SCH (11:00)
[2017-04-07] MEDS: ROCEPHIN 1 GM in NS 50 ML IV SCH (11:40)
[2017-04-07] MEDS: LOVENOX SUBQ SCH (14:41)
[2017-04-07] MEDS: AMBIEN PO PRN (21:13)
[2017-04-08] MEDS: DUONEB (A & A) INH SCH ×3 (03:00→11:25)
[2017-04-08] MEDS: HUMALOG SUBQ SCH ×3 (04:20→10:55)
[2017-04-08] MEDS: SOLU-MEDROL IV SCH ×2 (06:08→13:22)
[2017-04-08] MEDS: SYMBICORT 160/4.5 MICROGM INHALER INH SCH (07:52)
[2017-04-08] MEDS: SPIRIVA INH SCH (07:52)
[2017-04-08] MEDS: DILANTIN PO SCH (09:22)
[2017-04-08] MEDS: ZOLOFT PO SCH (09:22)
[2017-04-08] MEDS: DEPAKOTE PO SCH (09:22)
[2017-04-08] MEDS: ZITHROMAX 500 MG/NS 500 MG/250 ML IVPB IV SCH (09:22)
[2017-04-08] MEDS: HYZAAR 50/12.5 MG PO SCH (09:22)
[2017-04-08] MEDS: XANAX PO SCH ×2 (09:23→13:22)
[2017-04-08] MEDS: CYMBALTA PO SCH (09:23)
[2017-04-08] MEDS: ZANTAC PO SCH (09:23)
--- NOTE | 2017-04-08 10:05 | Diag Imaging Result Doc PS360 ---
EXAM: CHEST-2 VIEWS HISTORY: copd TECHNIQUE: PA and Lateral chest x-ray COMPARISON: 04/03/2017 FINDINGS: The cardiomediastinal silhouette is within normal limits. The pulmonary vasculature is not congested. No infiltrate, effusion, or pneumothorax is appreciated. There are mildly prominent interstitial markings bilaterally. IMPRESSION: No acute cardiopulmonary abnormality is identified. Mildly prominent interstitial markings may indicate mild parenchymal fibrosis. Electronically signed by Coco Mcclure 04/08/2017 10:03 AM
[2017-04-08] MEDS: ROCEPHIN 1 GM in NS 50 ML IV SCH (10:55)
[2017-04-08 11:15] VITALS: BP 138/79
[2017-04-08] MEDS: LOVENOX SUBQ SCH (13:24)
[2017-04-09] MEDS ORDERED: PREDNISONE PO SCH (09:00)
== END 2017-04-08 14:47 | disposition home or self-care (01) ==
LOC: ED 09:55 → 4N 16:07
PROVIDERS: ADMIT Internal Medicine; ATTEND Internal Medicine

== ENCOUNTER 2019-06-18 15:17 | Inpatient (IN) ==
[2019-06-18] MEDS ORDERED: SODIUM CHLORIDE 0.9% INJ PRN (17:40)
[2019-06-18] MEDS ORDERED: TYLENOL PO PRN (17:40)
[2019-06-18] MEDS ORDERED: PHENERGAN IV PRN (17:40)
--- NOTE | 2019-06-18 18:14 | Diag Imaging Result Doc PS360 ---
EXAM: CHEST-2 VIEWS 06/18/2019 HISTORY: R05, , , , , TECHNIQUE: PA and lateral chest COMMENT: There is a calcified granuloma in the left lower lobe. The heart size and pulmonary vascularity are within normal limits. Compared to 06/11/2019 there has been no significant change. IMPRESSION: No evidence of acute disease. Electronically signed by Godwin Velásquez 06/18/2019 6:12 PM
[2019-06-18] MEDS: ROCEPHIN 1 GM in NS 50 ML IV SCH (18:47)
[2019-06-18] MEDS: SOLU-MEDROL IV SCH (18:47)
[2019-06-18 18:49] LABS: BASO# 0.05 X1000 (0.0-0.2); BASO% 0.4 % (0.0-0.8); EOS# 0.61 X1000 (0.0-0.7); EOS% 5.1 % (0.0-10.0); HEMATOCRIT 43.3 % (37.0-47.0); HEMOGLOBIN 14.4 g/dL (12.0-16.0); IMM GRAN# 0.07 X1000 (0.0-0.04); IMM GRAN% 0.6 % (0.0-0.5); LYMPH# 4.47 X1000 (1.2-3.4); LYMPH% 37.3 % (20.5-51.1); MCH 26.8 PG (27-31); MCHC 33.3 g/dL (33-37); MCV 80.6 FL (81-99); MONO# 0.77 X1000 (0.11-0.59); MONO% 6.4 % (1.7-9.3); MPV 10.4 FL (7.4-10.4); NEUT# 6.03 X1000 (1.4-6.5); NEUT% 50.2 % (42.2-75.2); PLT 334 X1000 (130-400); RBC 5.37 XMIL (4.2-5.4); RDW 14.4 % (11.5-14.5)
[2019-06-18 19:05] LABS: AGAP 11; BUN 16 mg/dL (8-22); CALCIUM 9.6 mg/dL (8.8-10.2); CHLORIDE 103 mmol/L (98-107); COSMO 288; CREATININE 0.8 mg/dL (0.5-0.9); ESTIMATED GFR > 60; GLUCOSE 70 mg/dL (70-104); POTASSIUM 3.5 mmol/L (3.5-5.1); SODIUM 145 mmol/L (136-145); TCO2 31 mmol/L (25-35)
[2019-06-18] MEDS: ZITHROMAX 500 MG/NS 500 MG/250 ML IVPB IV SCH (19:36)
[2019-06-18] MEDS: DUONEB (A & A) INH SCH ×4 (21:11→23:33)
--- NOTE | 2019-06-18 21:25 | HISTORY AND PHYSICAL ---
CHIEF COMPLAINT: Cough and shortness of breath. HISTORY OF PRESENT ILLNESS: Ms. Heidi Vidal is a 64-year-old -[place] lady with a history of multiple medical problems including chronic respiratory failure on nocturnal home oxygen at 2 L per nasal cannula, COPD, previous history of tobacco abuse, type 2 insulin-dependent diabetes mellitus complicated by polyneuropathy, essential hypertension, previous CVA, bipolar disorder who is well known to me. She presented to the office with a 5-day history of increasing shortness of breath, increasing work of breathing, cough productive of clear to yellowish sputum, pleuritic chest pain with deep inspiration, paroxysms of cough and diffuse wheezing. She denies any nausea, vomiting, diarrhea, fever or chills. Her chest x-ray demonstrated hyperinflation of lung wheat. No infiltrate or effusions were noted. She denied any PND, orthopnea or increasing peripheral edema. She has a longstanding history of a seizure disorder. She remains seizure free. She has had no nausea, vomiting, gingival hyperplasia or ataxia secondary to the Dilantin. She does have a history of type 2 insulin-dependent diabetes mellitus complicated by polyneuropathy. She is taking Novolin 70/30 35 units subcu b.i.d. and Tresiba 15 units subcu b.i.d., her most recent hemoglobin A1c was 5.5. PAST MEDICAL HISTORY: Chronic respiratory failure on nocturnal home oxygen at 2 L per nasal cannula, COPD, essential hypertension, type 2 insulin-dependent diabetes mellitus complicated by polyneuropathy, bipolar disorder, previous CVA, seizure disorder. PAST SURGICAL HISTORY: Tubal ligation. ALLERGIES: Aspirin, cephalexin, Januvia, levofloxacin. FAMILY HISTORY: Her father at the age of 69. He had hypertension, coronary artery disease status post SD. Her mother of complications from peritonitis at age 61, her sister has hypertension, diabetes, ischemic heart disease and a previous stroke. SOCIAL HISTORY: She does consume alcoholic beverages, former smoker. She lives with her spouse. MEDICATIONS: DuoNeb nebulized q.6 hours, amlodipine 10 mg daily, Eliquis 5 mg b.i.d., Lipitor 40 mg at bedtime, Depakote 1000 mg b.i.d., Cymbalta 60 mg daily, NovoLog 70/30 35 units subcu b.i.d., Lantus 15 units subcu b.i.d., losartan hydrochlorothiazide 100/25 one p.o. daily, Dilantin 400 mg daily, Zoloft 100 mg daily, Ambien 10 mg at bedtime p.r.n. insomnia. REVIEW OF SYSTEMS: She denies any recent weight gain or weight loss.HEENT: No loss of visual or auditory acuity. CV: No chest pain, palpitations or anginal equivalents. Pulmonary: See HPI. GI: No reflux, dysphagia, melena, hematochezia, change in bowel habits or rectal bleeding. Endocrine: No polyuria, no polydipsia, no cold or heat intolerance. Skin: No easy bruisability. : No leakage of urine with coughing or laughing . Neurologic: No migraines or seizures. Psychiatric: She has history depression. This is a chronically ill-appearing 64-year-old lady in mild distress secondary to shortness of breath. Temperature 98.4 degrees, pulse 88, respirations 18, BP 128/75, O2 saturation 92% on room air. HEENT: Fundi with arteriolar wall thickening. Pupils equal, round, reactive to light. Extraocular eye movements intact. Neck: Supple. No masses, JVD or bruits. CV: Regular rate and rhythm. Lungs: Diffuse end expiratory wheezing with forced expiration. Abdomen: Soft, nontender with active bowel sounds. Extremities: Without edema. Skin: No palpable purpura. Neuro: She has decreased light touch in the distal extremities bilaterally. ASSESSMENT AND PLAN: 1. Chronic respiratory failure on nocturnal home oxygen 2 L per nasal cannula secondary to acute chronic obstructive pulmonary disease exacerbation. She has increasing shortness of breath, increased work of breathing and diffuse wheezing. I will admit her to [facility] where I will continue supplemental O2. Begin methylprednisolone 60 mg IV q.8 hours, DuoNeb nebulizer treatments and begin broad-spectrum antibiotics including Rocephin and Zithromax. 2. Type 2 insulin-dependent diabetes mellitus complicated by polyneuropathy. We will place her on 1800 calorie ADA diet, pattern sugars, Humulin R sliding scale and resume her regular home dosage of medications. 3. Hypertension, blood pressure is stable. We will continue her current regimen of medications including amlodipine and losartan hydrochlorothiazide. 4. Seizure disorder. She remains seizure free. We will continue Dilantin. Given her comorbid conditions and clinical presentation, I believe admission to the hospital is necessary. I anticipate that she will be in the hospital for at least 2 midnights and I will therefore place her in inpatient status. I will continue Eliquis for DVT prophylaxis. cc: Antonio Ramirez MD
[2019-06-18] MEDS: ELIQUIS PO SCH (22:44)
[2019-06-18] MEDS: FLONASE NAS SCH (22:44)
[2019-06-18] MEDS: DEPAKOTE PO SCH (22:44)
[2019-06-18] MEDS: LIPITOR PO SCH (22:44)
[2019-06-18] MEDS: AMBIEN PO SCH (22:44)
[2019-06-18] MEDS: HUMULIN R SUBQ SCH (22:45)
[2019-06-18] MEDS: TRESIBA FLEXTOUCH U-100 SUBQ SCH (22:45)
[2019-06-19] MEDS: SOLU-MEDROL IV SCH ×4 (02:43→18:00)
[2019-06-19] MEDS: DUONEB (A & A) INH SCH ×9 (05:01→22:54)
[2019-06-19] MEDS: HUMULIN R SUBQ SCH ×4 (06:33→22:57)
[2019-06-19] MEDS ORDERED: INSULIN PEN NEEDLES ONE (06:35)
[2019-06-19] MEDS ORDERED: NOVOLOG MIX 70/30 (PARKWAY) SUBQ SCH (07:00)
[2019-06-19] MEDS: NOVOLOG MIX 70/30 SUBQ SCH ×2 (08:38→18:00)
[2019-06-19] MEDS: TRESIBA FLEXTOUCH U-100 SUBQ SCH ×2 (08:38→22:57)
[2019-06-19] MEDS: CYMBALTA PO SCH (08:39)
[2019-06-19] MEDS: ZOLOFT PO SCH (08:39)
[2019-06-19] MEDS: DILANTIN PO SCH (08:39)
[2019-06-19] MEDS: HYZAAR 50/12.5 MG PO SCH (08:39)
[2019-06-19] MEDS: NORVASC PO SCH (08:39)
[2019-06-19] MEDS: DEPAKOTE PO SCH ×2 (08:40→22:57)
[2019-06-19] MEDS: ELIQUIS PO SCH ×2 (08:40→22:57)
--- NOTE | 2019-06-19 09:35 | PROGRESS NOTE ---
DATE: 06/19/2019 SUBJECTIVE: Mrs. Vidal has a history of chronic respiratory failure with hypoxia for which she wears nocturnal home oxygen at 2 L per nasal cannula. She was admitted to [facility] with an acute chronic obstructive pulmonary disease exacerbation. Her initial chest x-ray demonstrated hyperinflation of the lung wheat. No infiltrates or effusions were noted. She continues with a persistent nonproductive cough, mild shortness of breath and wheezing. She reports that her breathing seems more comfortable and she does not feel like she is having to work is hard to breathe. OBJECTIVE: Blood pressure remains well controlled. Systolic blood pressures have ranged from 122 to 128 whereas her diastolic blood pressures have ranged from 75 to 85. She denies any chest pain, palpitations, or anginal equivalents. Temperature 98.5 degrees pulse 97, BP 121/75. Respiratory rate 18. CV regular rate and rhythm. Lungs is scattered end-expiratory wheezing with forced expiration and scattered rhonchi. Abdomen: Soft, nontender, with active bowel sounds. Extremities without edema. ASSESSMENT AND PLAN: 1. Chronic respiratory failure with hypoxia on nocturnal home oxygen and acute chronic obstructive pulmonary disease exacerbation. Clinically, she seems a little bit better this morning. She will continue to wear O2 at 2 L per nasal cannula while sleeping and we will continue DuoNeb nebulizer treatments q. 6 hours, IV Solu-Medrol to 60 mg IV q. 8 hours, Trilogy and broad-spectrum antibiotics including ceftriaxone and Zithromax. 2. Hypertension. Blood pressure is stable. We will continue amlodipine 10 mg daily and Losartan/HCT 100/12.5 mg daily. cc: Antonio Ramirez MD
[2019-06-19 15:54] LABS: URINE SOURCE CLEAN CATCH
[2019-06-19 16:19] LABS: BILIRUBIN URINE NEGATIVE (NEGATIVE); BLOOD URINE NEGATIVE (NEGATIVE); COLOR YELLOW; GLUCOSE URINE NEGATIVE (NEGATIVE); KETONE URINE TRACE mg/dL (NEGATIVE); LEUKOCYTES URINE SMALL (NEGATIVE); NITRITE URINE NEGATIVE (NEGATIVE); PROTEIN URINE NEGATIVE (NEGATIVE); SP GRAVITY URINE 1.022; TURBIDITY URINE CLEAR (CLEAR); UR EPITHELIAL CELLS <10 /HPF (<10); URINE BACTERIA NEGATIVE /HPF; URINE RBC <10 /HPF (<10); URINE WBC <10 /HPF (<10); UROBILINOGEN URINE NORMAL (NORMAL)
[2019-06-19] MEDS: ROCEPHIN 1 GM in NS 50 ML IV SCH (18:00)
[2019-06-19] MEDS: ZITHROMAX 500 MG/NS 500 MG/250 ML IVPB IV SCH (18:39)
[2019-06-19] MEDS: FLONASE NAS SCH (22:57)
[2019-06-19] MEDS: LIPITOR PO SCH (22:57)
[2019-06-19] MEDS: AMBIEN PO SCH (22:57)
[2019-06-20] MEDS: DUONEB (A & A) INH SCH ×11 (03:20→23:41)
[2019-06-20] MEDS: SOLU-MEDROL IV SCH ×3 (03:23→21:59)
[2019-06-20] MEDS: HUMULIN R SUBQ SCH ×4 (06:01→21:59)
[2019-06-20] MEDS: DEPAKOTE PO SCH ×2 (09:33→21:59)
[2019-06-20] MEDS: NORVASC PO SCH (09:33)
[2019-06-20] MEDS: CYMBALTA PO SCH (09:33)
[2019-06-20] MEDS: DILANTIN PO SCH (09:33)
[2019-06-20] MEDS: HYZAAR 50/12.5 MG PO SCH (09:33)
[2019-06-20] MEDS: NOVOLOG MIX 70/30 SUBQ SCH ×2 (09:34→18:06)
[2019-06-20] MEDS: ZOLOFT PO SCH (09:34)
[2019-06-20] MEDS: TRESIBA FLEXTOUCH U-100 SUBQ SCH ×2 (09:42→22:00)
[2019-06-20] MEDS: ELIQUIS PO SCH ×2 (09:42→21:59)
[2019-06-20] MEDS: ROCEPHIN 1 GM in NS 50 ML IV SCH (18:06)
[2019-06-20] MEDS: ZITHROMAX 500 MG/NS 500 MG/250 ML IVPB IV SCH (18:06)
[2019-06-20] MEDS ORDERED: INSULIN PEN NEEDLES ONE (18:27)
--- NOTE | 2019-06-20 19:09 | PROGRESS NOTE ---
DATE: 06/20/2019 SUBJECTIVE: Ms. Vidal was admitted to [facility] with an acute COPD exacerbation complicated by tracheobronchitis. Clinically, she continues to improve slowly. She is breathing more comfortably and maintaining O2 saturations of 96% to 98% on room air. She still has occasional end-expiratory wheezes, but her air movement has improved as compared to admission. Her cough is largely nonproductive. OBJECTIVE: Temperature 98.5 degrees, pulse 94, respiratory rate 17, BP 132/71. Cardiovascular: Regular rate and rhythm. Lungs: Occasional end-expiratory wheezing with forced expiration. Abdomen: Soft, nontender, with active bowel sounds. ASSESSMENT AND PLAN: Chronic respiratory failure with hypoxia with acute chronic obstructive pulmonary disease exacerbation. Clinically, she continues to improve. I will continue nocturnal home oxygen, DuoNeb nebulizer treatments, resume Trelegy, and titrate downward on the methylprednisolone. We will increase activity. If she continues to improve clinically as we titrate off steroids, I hope to be able to discharge her home within the next day or two. cc: Antonio Ramirez MD
[2019-06-20] MEDS: AMBIEN PO SCH (21:58)
[2019-06-20] MEDS: LIPITOR PO SCH (21:58)
[2019-06-20] MEDS: FLONASE NAS SCH (21:59)
[2019-06-21] MEDS: DUONEB (A & A) INH SCH ×6 (03:43→20:10)
[2019-06-21] MEDS: SOLU-MEDROL IV SCH ×3 (06:46→20:42)
[2019-06-21] MEDS: HUMULIN R SUBQ SCH ×4 (06:47→20:43)
[2019-06-21] MEDS: DEPAKOTE PO SCH ×2 (09:26→20:42)
[2019-06-21] MEDS: DILANTIN PO SCH (09:26)
[2019-06-21] MEDS: CYMBALTA PO SCH (09:26)
[2019-06-21] MEDS: NORVASC PO SCH (09:26)
[2019-06-21] MEDS: HYZAAR 50/12.5 MG PO SCH (09:26)
[2019-06-21] MEDS: ZOLOFT PO SCH (09:26)
[2019-06-21] MEDS: ELIQUIS PO SCH ×2 (09:26→20:42)
[2019-06-21] MEDS: NOVOLOG MIX 70/30 SUBQ SCH ×2 (09:27→16:17)
[2019-06-21] MEDS: TRESIBA FLEXTOUCH U-100 SUBQ SCH ×2 (09:27→20:43)
[2019-06-21] MEDS: NON-FORMULARY BULK MED INH SCH (09:27)
[2019-06-21] MEDS: ROCEPHIN 1 GM in NS 50 ML IV SCH (17:13)
[2019-06-21] MEDS: ZITHROMAX 500 MG/NS 500 MG/250 ML IVPB IV SCH (17:43)
[2019-06-21] MEDS: AMBIEN PO SCH (20:42)
[2019-06-21] MEDS: LIPITOR PO SCH (20:42)
[2019-06-21] MEDS: FLONASE NAS SCH (20:42)
[2019-06-22] MEDS: DUONEB (A & A) INH SCH ×2 (06:04→07:42)
[2019-06-22] MEDS: SOLU-MEDROL IV SCH (06:35)
[2019-06-22] MEDS: HUMULIN R SUBQ SCH (06:36)
[2019-06-22 07:26] VITALS: BP 106/57
[2019-06-22] MEDS: DEPAKOTE PO SCH (08:29)
[2019-06-22] MEDS: ZOLOFT PO SCH (08:29)
[2019-06-22] MEDS: HYZAAR 50/12.5 MG PO SCH (08:29)
[2019-06-22] MEDS: NON-FORMULARY BULK MED INH SCH (08:29)
[2019-06-22] MEDS: NORVASC PO SCH (08:30)
[2019-06-22] MEDS: TRESIBA FLEXTOUCH U-100 SUBQ SCH (08:30)
[2019-06-22] MEDS: ELIQUIS PO SCH (08:30)
[2019-06-22] MEDS: NOVOLOG MIX 70/30 SUBQ SCH (08:30)
[2019-06-22] MEDS: CYMBALTA PO SCH (08:30)
[2019-06-22] MEDS: DILANTIN PO SCH (08:30)
[2019-06-22] MEDS ORDERED: PREDNISONE PO SCH (21:00)
--- NOTE | 2019-06-23 14:25 | DISCHARGE SUMMARY ---
ADMISSION DATE: 06/18/2019 DISCHARGE DATE: 06/22/2019 DISCHARGE DIAGNOSES: 1. Chronic respiratory failure with hypoxia on nocturnal home oxygen at 2 L per nasal cannula. 2. Acute chronic obstructive pulmonary disease exacerbation. 3. Acute tracheobronchitis. 4. Type 2 insulin-dependent diabetes mellitus, uncontrolled, complicated by diabetic polyneuropathy. 5. Chronic long-term use of insulin. 6. Essential hypertension. 7. Mixed hyperlipidemia. 8. History of grand mall seizures. 9. Depression. DISCHARGE INSTRUCTIONS: 1. The patient will return to clinic for followup visit the week july. 2. Activity as tolerated. 3. 1800 calorie ADA diet. MEDICATIONS: DuoNeb nebulized q.6 hours, amlodipine 10 mg daily, Eliquis 5 mg b.i.d., atorvastatin 40 mg at bedtime, valproic acid 1000 mg b.i.d., Cymbalta 60 mg daily, Flonase nasal spray 1 spray to each nostril daily, NovoLog 70/30 35 units subcu b.i.d., Tresiba 15 units subcu b.i.d., losartan hydrochlorothiazide 100/25 one p.o. daily, Dilantin 400 mg daily, prednisone 5 mg b.i.d. for 3 days then 1 tablet daily for 3 days then stop, Zoloft 100 mg daily, Ambien 10 mg at bedtime p.r.n. insomnia. This is a chronically ill-appearing 64-year-old lady in no apparent distress. She is afebrile. Vital signs are stable. CV: Regular rate and rhythm. Lungs: Clear. Abdomen: Soft, nontender with active bowel sounds. Ms. Vidal has a history of chronic respiratory failure with hypoxia on nocturnal home oxygen. She presented to the office complaining of increasing shortness of breath, increasing work of breathing, pleuritic chest pain, low-grade fever, chills, and a cough productive of yellowish sputum. The patient was admitted to [facility] where we treated her with supplemental O2, DuoNeb nebulizer treatments, IV methylprednisolone, and broad-spectrum antibiotics including Rocephin and Zithromax. Over the course of the next several days, she made good clinical improvement. She defervesced and remained afebrile. We were able to wean her down on IV steroids without regression of her symptoms. Her shortness of breath, cough and pleuritic chest pain resolved. Followup chest x-rays demonstrated clear lung wheat. She is up-to-date on both the Pneumovax and Prevnar vaccinations. She will continue her regular regimen of COPD medications including O2 at 2 L per nasal cannula at night, Trelegy 1 inhalation daily, DuoNeb nebulize q.6 hours and will complete a prednisone taper as an outpatient. She does have a longstanding history of hypertension. Her blood pressure remained stable on her regular home medicines of losartan/hydrochlorothiazide and amlodipine. She does have a longstanding history of seizure disorder. She was continued on Depakote as well as Dilantin. She remains seizure-free. Having reached maximum hospital benefit, the patient was discharged in stable condition. cc: Antonio Ramirez MD
== END 2019-06-22 11:21 | disposition home or self-care (01) | DRG 202 ==
LOC: RAD 15:17 → DIRADM 16:58 → 4N 17:27 → 3N 17:33
PROVIDERS: ADMIT Internal Medicine; ATTEND Internal Medicine